=== PATIENT | male | born 1990 | race Caucasian/White ===

== ENCOUNTER 2019-09-24 17:28 | Emergency (ER) | payer SELFPAY ==
[2019-09-24 17:29] VITALS: BP 148/95; PULSE 89; RESP 16; TEMP 36.4; O2SAT 97; BMI 28.6
--- NOTE | 2019-09-24 17:40 | ED.DCSUM_ITS ---
History of Present Illness Chief Complaint: Lower Extremity Injury Informant: Patient Onset: Weeks - 1 week ago Mechanism/Context: Blunt Injury - Left lower extremity Quality of Pain: Sharp, Dull Location: Anterior mid left thigh Current Severity: Mild Maximum Severity: Severe Worsened by: Weightbearing and movement Relieved by: Rest and elevation Associated Symptoms: Negative for: Parasthesias, Weakness, Loss of function, Inability to ambulate, Loss of consciousness, Amnesia Narrative: Patient is a 29-year-old male who cut down a [place]. The trunk was 12 to 18 inches in diameter. 3 fell on patient. He presents now because of increasing pain and swelling. He denies paresthesia, anesthesia motor weakness. He has no other complaints. He has taken Tylenol No. 3, which was prescribed for his mother. - Past Medical History (1) No significant past medical history Status: Acute Past Medical History - Allergies and Home Meds Allergies/Adverse Reactions: Allergies No Known Allergies Allergy (Verified 09/24/19 17:28) Primary Care Physician: NOT,DEFINED [NON-STAFF] - Surgical History: no surgical history Drugs: None Review of Systems General: Denies: Chills, Fever, Subjective, Sweats Gastrointestinal: Denies: Nausea, Vomiting Musculoskeletal: Reports: Swelling, Extremity Pain. Denies: Myalgias, Arthralgias, Neck pain, Back pain Skin: Reports: Abscess, Wounds. Denies: Rash Neurological: Denies: Weakness, Parasthesia, Numbness Hematologic: Denies: Easy bruising, Easy bleeding Physical Exam Vital Signs/Narrative: Vital Signs Temp Pulse Resp BP Pulse Ox 09/24/19 17:29 97.6 F L 89 16 148/95 H 97 Inital Vital Signs reviewed: Yes General: Well nourished, Well developed Head: Normocephalic, Atraumatic Eyes: Perrl, EOMI. Negative for: Pale conjunctiva, Scleral icterus Extremeties: There is bruising of the anterior mid/distal left thigh. There is a large hematoma noted. There is an abrasion noted superior lateral to the left patella. Left patella is not ballotable. There is no effusion. There is no joint line tenderness. Is no lacks with varus valgus stress testing. Neelima's test was negative. Modified Goran's test was negative. Is no pain to palpation of the popliteal fossa. DP and PT pulses are palpable. There is no inguinal lymphadenopathy. Skin: Normal color, Rash, Trauma. Negative for: Cyanosis, Diaphoresis, Jaundice, No Trauma Neurological: Alert, Oriented x3, Cranial nerves II-XII grossly intact, Normal Strength, Normal Sensation Psychological: Normal affect, Normal Mood Diagnostic/Tx/Re-eval Chest X-Ray - ED: 2 View, Read by ED Physician, - - No fracture, foreign body or calcification noted. There is soft tissue swelling noted consistent with a hematoma. 09/24/19 18:38 Femur Min 2 Views [RAD] Stat - Medical Decision Making X-ray of the left femur was obtained to evaluate for calcification and fracture. He was medicated with Naprosyn since he drove himself to the emergency depa rtment. ED Disposition - Plan for ED Patient: Disposition: Home or Assisted Living Diagnosis: Traumatic hematoma of left thigh Instructions: CONTUSION, Lower Extremity Prescriptions: Hydrocodone Bitart/Apap 5-325 [[place] 5MG-325MG] 1 tab PO Q6H PRN PRN 3 Days #10 tab PRN Reason: Pain Prescription Printed Referrals: NOT,DEFINED [NON-STAFF] - Additional Instructions: Use crutches. No weightbearing for 2 days. Weightbearing thereafter as tolerated.
--- NOTE | 2019-09-24 18:38 | RAD_ITS ---
STUDY: X-RAY - LEFT FEMUR REASON FOR STUDY: Male, 29 years old. Trauma TECHNIQUE: 4 view(s) of the femur. COMPARISON: None. FINDINGS: There is a cortical focus within sclerotic margins of the posteromedial distal femoral shaft measuring 4.9 x 1.5 cm. Normal visualized soft tissue structure. There is no demonstrated fracture or destructive process. RAD/Femur Min 2 Views IMPRESSION: There is no evidence of left femoral fracture or dislocation. There is a cortical focus with thin sclerotic margins of the posteromedial distal femoral shaft measuring 4.9 x 1.5 cm. This more likely represents benign process such as involution of Fibrous cortical defect. Orthopedic consult may be prudent however. Electronically Signed: Esau Anderson MD at 18:55 EST , Service support ,
[2019-09-24] MEDS: Naproxen 500 MG Tablet PO (18:47)
== END 2019-09-24 19:02 | disposition home or self-care (01) ==
PROVIDERS: Emergency Provider Emergency Medicine
DX: S70.12XA Contusion of left thigh, initial encounter (principal); S80.212A Abrasion, left knee, initial encounter; W22.8XXA Striking against or struck by other objects, initial encounter; Y93.9 Activity, unspecified; Y92.9 Unspecified place or not applicable
CPT/HCPCS: 73552; 99284

== ENCOUNTER 2020-10-29 21:20 | Emergency (ER) | payer SELFPAY ==
[2020-10-29 21:21] VITALS: BP 113/84; PULSE 81; RESP 16; TEMP 36.3; O2SAT 99; BMI 31.1
--- NOTE | 2020-10-29 21:24 | RAD_ITS ---
HISTORY: 4th digit crush injury in can egg breaker Technique: 3 images of the right fourth digit Comparison: None available Findings: There is a comminuted fracture to the distal tuft of the fourth digit with flexion angulation and displacement of the distal fracture fragments. Soft tissue swelling is present about the fracture distal tip of the fourth digit Osseous mineralization, joint spaces, and alignment otherwise appear preserved as imaged. No focal abnormality or radiopaque foreign body is seen in the surrounding soft tissues. RAD/Finger(s) Min 2 Views IMPRESSION: Comminuted displaced fracture to the distal aspect of the fourth digit distal phalanx. The distal fracture fragments appear to have been flexed at the fracture line volarly. at 2207 Reported and signed by: Roland Og MD Electronically Signed: Roland Og MD at 22:06 EST Tel , Service support ,
[2020-10-29] MEDS: Diphth,Pertuss(Acell),Tet Vac 0.5 ML Vial IM (22:09)
[2020-10-29] MEDS: Bupivacaine Mpf 0.5% 30 ML VIAL INFILT (22:10)
[2020-10-29] MEDS: Cefazolin 1 GM/50 ML BAG IV (22:15)
--- NOTE | 2020-10-29 23:30 | ED.DCSUM_ITS ---
- ER Visit Summary Date of Service: 10/29/20 Chief Complaint: Laceration History of Present Illness: The patient is a 30 M with no primary care physician. He is right-hand dominant. 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 He is unsure when his last tetanus shot was. Patient reports that just prior to coming emergency department he was using a pneumatic can pressure and caught his right ring finger with this. He is a sharp, throbbing pain is 9-10 with movement 7 out of 10 at rest. He denies any other complaints. Physical Examination: Vitals: Stable. Afebrile. General: Well-nourished and well-developed. Head: Normocephalic atraumatic. Neck: Supple, no lymphadenopathy. No JVD. Nontender. Cardiovascular: Regular rate and rhythm. No murmurs. Respiratory: No respiratory distress. Clear to auscultation bilaterally. Abdominal: Soft, nontender, nondistended, normal bowel sounds. No guarding, rebound, or peritoneal signs. Back: Nontender. Extremities: Right ring finger shows a crush injury of the distal phalanx. There is a 1.5 cm laceration that is horizontal through the distal third of his nail. There is a 2 cm laceration on the palmar surface of his finger that extends from his nail proximally. There is a 1 cm laceration on the lateral side of his distal phalanx that extends proximally. The area is very swollen and contused. Skin: Normal color, no rash. Neurologic: Alert and oriented ?3. Cranial nerves II through XII are intact. Normal strength and sensation. Psych: Normal affect. Test Results: Clinical Impression(s) from Imaging Studies Finger X-Ray 10/29/20 21:24 IMPRESSION: Comminuted displaced fracture to the distal aspect of the fourth digit distal phalanx. The distal fracture fragments appear to have been flexed at the fracture line volarly. at 2207 Reported and signed by: Roland Og MD Electronically Signed: Roland Og MD at 22:06 EST Tel , Service support , Emergency Department Course and Treatment: Patient had his tetanus updated. He was given Ancef IV. He had his wound anesthetized and repaired. He tolerated this well. Treatment Plan: Patient will be discharged on Keflex and Percocet. Instructed to follow-up with Dr. Woodruff in 3 to 5 days for a wound check. Return to the emergency department for any worsening symptoms. Disposition: To home in improved and stable condition. Impression: 1. Crush injury right ring finger. 2. Tuft fracture right ring finger. 3. Laceration right ring finger x3, total 4.5 cm, repaired. Procedure note: Wound was cleansed with chlorhexidine soap. Digital block was performed. Copi ously irrigated with normal saline. Wound was explored there is no foreign material present. The nail was left in place to use as an anatomic splint. 2 simple interrupted 4-0 Ethilon sutures were placed in this to hold the finger straight. The 2 cm laceration on the palmar surface was repaired with 4 simple erupted 4-0 Ethilon sutures. The 1.5 cm laceration was repaired with 2 simple interrupted 4-0 Ethilon sutures. The patient tolerated it well. This note was generated with [employer] dictation software. It may contain incorrect words, spelling, and punctuation that were not noted in review of the chart prior to signing ED Disposition - Plan for ED Patient: Instructions: ED Fracture, Finger, Open Prescriptions: Cephalexin [Keflex] 500 mg PO Q6 #40 capsule Oxycodone HCl/Acetaminophen [Percocet 5/325] 1 tablet PO Q6H PRN PRN 3 Days #12 tablet PRN Reason: Pain Referrals: Lester Woodruff MD [STAFF PHYSICIAN] - 3-5 Days
== END 2020-10-30 00:01 | disposition home or self-care (01) ==
LOC: ED 22:26
PROVIDERS: Emergency Provider Emergency Medicine
DX: S67.194A Crushing injury of right ring finger, initial encounter (principal); S62.634A Displaced fracture of distal phalanx of right ring finger, initial encounter for closed fracture; S61.314A Laceration without foreign body of right ring finger with damage to nail, initial encounter; W23.0XXA Caught, crushed, jammed, or pinched between moving objects, initial encounter; Y93.9 Activity, unspecified; Y92.9 Unspecified place or not applicable
CPT/HCPCS: 12002; 73140; 90471; 90715; 96365; 96366; 99284; A4216

== ENCOUNTER 2021-11-08 13:10 | Outpatient (CLI) | payer BC, SELFPAY | END 2021-11-08 23:59 | disposition short-term general hospital (02) | LOC: LABSPEC 13:12 | PROVIDERS: Referring Provider Physician Assistant Surgical; Visit Provider Physician Assistant Surgical | DX: U07.1 COVID-19 (principal) | CPT/HCPCS: 87635; U0003; U0005 ==

== ENCOUNTER → 2023-10-19 | Outpatient (CLI) | payer BC, SELFPAY ==
--- OUTSIDE RECORDS SUMMARY | 2023-10-19 13:01 | XMS RPT_ITS | CCD ---
Author Name Unknown Address [address] [place] [address] Organization [facility] Care Team Providers Care Side Laster Tack Name Role Phone Elliott Luna Unavailable Unavailable Elliott Luna Unavailable Unavailable No Doctor Assigned, Nodr Unavailable Unavail able SHALONDA FIGUEROA (PA) Unavailable Unavailable EMMETT PERERA (COMPOSITION TEACHER) Unavailable Unavailable SHALONDA FIGUEROA (PA) Unavailable Unavailable EMMETT PERERA (COMPOSITION TEACHER) Unavailable Unavailable EMMETT PERERA (COMPOSITION TEACHER) Unavailable Unavailable Unknown, Referring Provider Unavailable Unav ailable Unavailable Unavailable Medications Completed/Discontinued Medications Medication Drug Class(es) Dates Sig (Normalized) Sig (Original) [id number] 200 actuat albuterol 0.09 mg/actuat metered dose inhaler (2 sources) beta2-Adrenergic Agonist Start: 09-29-2021 take 2 puff(s) by inhalation every four to six hours Ventolin HFA 108 (90 Base) MCG/ACT Inhalation Aerosol Solution INHALE 2 PUFFS EVERY 4-6 HOURS, SPACED 60 SECONDS APART. Quantity: 1 Refills: 0 Ordered: 29-Sep-2021 Brent Man MD Start : 29-Sep-2021 Active Problems Problem Classification Problem Date Documented Da te Episodic/Chronic Asthma (1 source) Reactive airway disease; Translations: [Asthma, unspecified type, unspecified] Chronic Chronic obstructive pulmonary disease and bronchiectasis (1 source) Bronchitis; Translations: [Bronchitis, not specified as acute or chronic] Episodic Nonspecific chest pain (1 source) Chest pain, unspecified; Translations: [Chest pain, unspecified] Onset: 05-01-2018 Episodic Other lower respiratory disease (2 sources) Shortness of breath; Translations: [Cough] Onset: 04-17-2018 Episodic Other skin disorders (1 source) Localized swelling, mass and lump, trunk; Translations: [Localized swelling, mass and lump, trunk] Onset: 05-10-2018 Episodic Screening or history of mental health and substance abuse (1 source) Personal history of nicotine dependence; Translations: [Personal history of nicotine dependence] Onset: 05-10-2018 Episodic Unclassified (1 source) Abnormal findings on diagnostic imaging of other specified body structures; Translations: [Abnormal findings on diagnostic imaging of other specified body structures] Onset: 05-10-2018 Episodic Unclassified (1 source) Family history of ischemic heart disease and other diseases of the circulatory system; Translations: [Family history of ischemic heart disease and other diseases of the circulatory system] Onset: 05-01-2018 Episodic Results Test Name Value Interpretation Reference Range Facil ity Vital Signs Date Time Vital Sign Value Performing Clinician Sherlyn novak 09-29-2021 15:36-0500 Body height 182.88 cm Referring Provider Unknown [facility] Work Phone: 09-29-2021 15:36-0500 Body mass index (BMI) [Ratio] 31.19 kg/m2 Referring Provider Unknown [facility] Work Phone: 09-29-2021 15:36-0500 Body surface area Derived from formula 2.26 m2 Referring Provider Unknown [facility] Work Phone: 09-29-2021 15:36-0500 Body temperature 98.1 [degF] Referring Provider Unknown [facility] Work Phone: 09-29-2021 15:36-0500 Body weight 104.33 kg Referring Provider Unknown [facility] Work Phone: 09-29-2021 15:36-0500 Diastolic blood pressure 92 mm[Hg] Referring Provider Unknown [facility] Work Phone: 09-29-2021 15:36-0500 Heart rate 92 /min Referring Provider Unknown [facility] Work Phone: 09-29-2021 15:36-0500 Respiratory rate 16 /min Referring Provider Unknown [facility] Work Phone: 09-29-2021 15:36-0500 SaO2% (BldA) [Mass fraction] 96 % Referring Provider Unknown [facility] Work Phone: 09-29-2021 15:36-0500 Systolic blood pressure 136 mm[Hg] Referring Provider Unknown [facility] Work Phone: 09-29-2021 15:36-0500 0 1 Referring Provider Unknown [facility] Work Phone: Encounters Encounter Date Encounter Type Care Provider Facility Start: 09-29-2021 Office outpatient ne w 20 minutes Referring Provider Unknown [facility] Work Phone: Start: 05-10-2018 End: 05-10-2018 Patient encounter EMMETT (KARLA) [facility] Start: 05-01-2018 End: 05-02-2018 Patient encounter EMMETT ESTRELLA) [facility] Start: 04-17-2018 End: 04-17-2018 Patient encounter SHALONDA FAJARDO) [facility] Start: 04-17-2018 End: 04-18-2018 [facility] Start: 06-21-2017 End: 06-22-2017 Ambulatory Elliott Maradiaga Luna Facility:[facility] Procedures Date Procedure Procedure Detail Performing Clinician Start: 09-18-2018 Follow-up visit Payers Date Payer Category Payer Unknown Social History Date Type Detail Facility Former smoker Former smoker [facility] Work Phone: History of Present illness Narrative 09-29-2021 Note Date & Type Note Facility 09-29-2021 History of Present illness Narrative 1-year-old male presents with 3 to 4 days of cough and chest congestion. Some runny nose and sore throat. Cough progressive feels like some of his prior coughing episodes for which sounds like he has been diagnosis of reactive airway disease but never saw PCP or assembler arranger to confirm it. Denies any fever chills. No fatigue or myalgias. No change in taste or smell, no nausea vomit diarrhea. He is not vaccinated for Covid, had a home test earlier today that was negative [facility] Work Phone: Summary Purpose Family History No Family History Records FoundNo Family History Records FoundNo Family History Records FoundNo Family History Records Found Advance Directives No Advanced Directives Records FoundNo Advanced Directives Records FoundNo Advanced Directives Records FoundNo Advanced Directives Records Found Additional Source Comments (unrecognized sect ion and content) No Status Records FoundNo Status Records FoundNo Status Records FoundNo Status Records Found INFORMATION SOURCE (unrecogn ized section and content) DATE CREATED AUTHOR AUTHOR'S ORGANIZ ATION 05/14/2018 [facility] DATE CREATED AUTHOR AUTHOR'S ORGANIZ ATION 09/30/2018 [employer] DATE CREATED AUTHOR AUTHOR'S ORGANIZ ATION 09/30/2021 [employer] FOR RECORDS PERTAINING TO PATIENTS WHO ARE OR HAVE BEEN ENROLLED IN A CHEMICAL DEPENDENCY/SUBSTANCEABUSE PROGRAM, SOME INFORMATION MAY BE OMITTED. This clinical summary was aggregated from multiple sources. Caution should be exercised in using it in the provision of clinical care. This summary normalizes information from multiple sources, and as a consequence, information in this document may materially change the coding, format and clinical context of patient data. In addition, data may be omitted in some cases. CLINICAL DECISIONS SHOULD BE BASED ON THE PRIMARY CLINICAL RECORDS. [facility] [employer] provides no warranty or guarantee of the accuracy or completeness of information in this document.
[2023-10-19 15:19] LABS: Absolute Lymphocyte Count 1.32 X10^3/uL (0.83-4.51); Basophil# 0.03 X10^3/uL; Basophil% 0.5 % (0-1); Eosinophil# 0.23 X10^3/uL; Eosinophils% 3.7 % (0-5); Hematocrit 51.3 % (40-54); Hemoglobin 16.6 g/dL (13.0-16.5); Lymphocyte # 1.32 X10^3/ul (0.83-4.51); Lymphocyte % 21.4 % (19-41); Mean Corp Hgb Conc 32.4 g/dL (32-36); Mean Corpuscular Volume 95.7 fL (80-94); Mean Platelet Vol. 10.7 fl (6.2-12.0); Monocyte# 0.59 X10^3/uL; Monocyte% 9.5 % (0-10); NRBC Flagged by Analyzer 0 % (0-5); Neutrophil % 64.7 % (47-70); Platelet Count 248 K/mm3 (150-450); RBC Distribution Width CV 12.3 % (11.6-14.6); RBC Distribution Width SD 43.3 fl (35.1-43.9); Red Blood Count 5.36 M/mm3 (4.6-6.2); White Blood Count 6.2 K/mm3 (4.4-11.0)
[2023-10-19 15:40] LABS: ALB/GLOB Ratio 1.2 RATIO (0.9-2.4); AST(SGOT) 32 U/L (15-37); Alanine Aminotransfer ALT/SGPT 81 U/L (16-61); Albumin, Serum 4.4 g/dL (3.2-5.0); Alkaline Phosphatase 68 U/L (45-117); Anion Gap 7 (5-15); BUN 13 mg/dL (7-18); BUN/Creat Ratio 12.5 RATIO (10-20); Calcium,Total 9.6 mg/dL (8.5-10.1); Chloride 103 mmol/L (98-107); Cholesterol 225 mg/dL (200); Creatinine, Serum 1.04 mg/dL (0.70-1.30); EST Glomerular Filtration Rate 87 mL/min (>60); Est Glom Filt Rate - Afr Amer 105 mL/min (>60); Globulin 3.7 g/dL (2.2-4.2); Glucose 93 mg/dL (74-106); High Density Lipoprotein 44 mg/dL; Magnesium 2.4 mg/dL (1.6-2.6); Potassium 3.9 mmol/L (3.5-5.1); Protein, Total 8.1 g/dL (6.4-8.2); Sodium Level 136 mmol/L (136-145); Triglycerides 326 mg/dL; Very Low Density Lipoprotein 65 mg/dL (5-40)
== END | disposition home or self-care (01) ==
LOC: MTLAB 12:36
PROVIDERS: PCP Nurse Practitioner Family; Referring Provider Nurse Practitioner Family; Visit Provider Nurse Practitioner Family
DX: Z00.01 Encounter for general adult medical examination with abnormal findings (principal); R00.2 Palpitations; R07.9 Chest pain, unspecified
CPT/HCPCS: 36415; 80053; 80061; 83735; 85025